=== PATIENT | male | born 1950 | race Caucasian/White ===

== ENCOUNTER 2016-04-27 21:44 | Emergency (ER) | payer OTHER, MEDICARE ==
[~2016-04-27] VITALS: Ht 177.8 cm; Wt 129.3 kg
[~2016-04-27 21:44] MED LIST: ACETAMINOPHEN325 M1 PO; ADVAIR HFA115 MCG/21 INH; AMLODIPINE BESYL5 MG PO; ASA81BEC PO; ASPIRIN325 PO; ASPIRIN81 M2 PO; ATORVASTATIN CA40 MG PO; AZOR 10-20 MG1 EACH PO; AZOR 10-40 MG1 EACH PO; BENICAR 5 MG5 M1 PO; BUMETANIDE2 M1 PO; BYSTOLIC10 MG PO; BYSTOLIC20 MG PO; CARDIZEM CD240 MG PO; CARTIA XT180 M1 PO; CEFDINIR300 MG PO; CELEBREX 200 M200 M1 PO; COLACE100 MG PO; DEMADEX20 MG PO; DIGOXIN250 MCG PO; EFFIENT10 MG PO; IRON325 PO; K-DUR 20 MEQ T20 MEQ PO; KLOR-CON 1010 MEQ PO; LIPITOR 20 MG T20 M1 PO; LISINOPRIL10 MG PO; LISINOPRIL20 MG PO; LISINOPRIL40 MG PO; MOBIC15 MG PO; NABUMETONE 500500 M1 PO; NICOTINE TRANSD14 M1 SUBQ; NITROGLYCERIN0.4 MG SL; PACERONE 200 M200 MG PO; PANTOPRAZOLE SO40 M1 PO; POTASSIUM20 PO; PROAIR HFA8.5 GM INH; RANEXA500 MG PO; SENNA; SIMVASTATIN40 MG PO; SPIRIVA INH; SPIRIVA18 MCG INH; SPIRONOLACTONE25 M1 PO; STOOL SOFTENER1 EAC2 PO; TOPROL XL50 MG PO; TRAMADOL 50 MG50 MG PO; VIBRAMYCIN 100100 M2 PO; XARELTO20 MG PO; ZOFRAN ODT4 MG PO
== END 2016-04-28 00:33 | disposition home or self-care (01) ==
LOC: ER 21:44
DX: M54.5 Low back pain (principal); E78.00 Pure hypercholesterolemia, unspecified; I25.2 Old myocardial infarction; I11.0 Hypertensive heart disease with heart failure; I50.30 Unspecified diastolic (congestive) heart failure; J44.9 Chronic obstructive pulmonary disease, unspecified; G47.30 Sleep apnea, unspecified; I48.91 Unspecified atrial fibrillation; F17.210 Nicotine dependence, cigarettes, uncomplicated; Z90.49 Acquired absence of other specified parts of digestive tract; Z95.5 Presence of coronary angioplasty implant and graft; Z87.442 Personal history of urinary calculi; Z86.73 Personal history of transient ischemic attack (TIA), and cerebral infarction without residual deficits; V43.52XA Car driver injured in collision with other type car in traffic accident, initial encounter; Y93.I9 Activity, other involving external motion; Y92.488 Other paved roadways as the place of occurrence of the external cause; Y99.8 Other external cause status

== ENCOUNTER → 2016-08-09 | Outpatient (CLI) | payer OTHER, MEDICARE | LOC: HYPER 07:04 | DX: S81.802A Unspecified open wound, left lower leg, initial encounter (principal); I73.9 Peripheral vascular disease, unspecified; E66.09 Other obesity due to excess calories; I25.10 Atherosclerotic heart disease of native coronary artery without angina pectoris; I48.91 Unspecified atrial fibrillation; J44.9 Chronic obstructive pulmonary disease, unspecified; E78.5 Hyperlipidemia, unspecified; M19.90 Unspecified osteoarthritis, unspecified site; I87.323 Chronic venous hypertension (idiopathic) with inflammation of bilateral lower extremity; F17.200 Nicotine dependence, unspecified, uncomplicated; Z72.89 Other problems related to lifestyle; V49.88XA Car occupant (driver) (passenger) injured in other specified transport accidents, initial encounter; Y93.89 Activity, other specified; Y92.89 Other specified places as the place of occurrence of the external cause; Y99.8 Other external cause status ==

== ENCOUNTER → 2016-08-16 | Outpatient (CLI) | payer OTHER, MEDICARE | LOC: HYPER 07:05 | DX: I87.332 Chronic venous hypertension (idiopathic) with ulcer and inflammation of left lower extremity (principal); L97.821 Non-pressure chronic ulcer of other part of left lower leg limited to breakdown of skin; I87.321 Chronic venous hypertension (idiopathic) with inflammation of right lower extremity; I73.9 Peripheral vascular disease, unspecified; E66.09 Other obesity due to excess calories; I48.91 Unspecified atrial fibrillation; J44.9 Chronic obstructive pulmonary disease, unspecified; E78.5 Hyperlipidemia, unspecified; M19.90 Unspecified osteoarthritis, unspecified site; F17.210 Nicotine dependence, cigarettes, uncomplicated; Z68.41 Body mass index [BMI] 40.0-44.9, adult; Z95.0 Presence of cardiac pacemaker; Z72.89 Other problems related to lifestyle ==

== ENCOUNTER → 2016-08-28 | Outpatient (CLI) | payer OTHER, MEDICARE | LOC: HYPER 07:37 | DX: I87.332 Chronic venous hypertension (idiopathic) with ulcer and inflammation of left lower extremity (principal); L97.821 Non-pressure chronic ulcer of other part of left lower leg limited to breakdown of skin; E66.09 Other obesity due to excess calories; I25.10 Atherosclerotic heart disease of native coronary artery without angina pectoris; I87.321 Chronic venous hypertension (idiopathic) with inflammation of right lower extremity; Z68.41 Body mass index [BMI] 40.0-44.9, adult; I48.91 Unspecified atrial fibrillation; J44.9 Chronic obstructive pulmonary disease, unspecified; E78.5 Hyperlipidemia, unspecified; M19.90 Unspecified osteoarthritis, unspecified site; F17.210 Nicotine dependence, cigarettes, uncomplicated; Z72.89 Other problems related to lifestyle ==

== ENCOUNTER → 2016-09-04 | Outpatient (CLI) | payer OTHER, MEDICARE | LOC: HYPER 07:09 | DX: I87.332 Chronic venous hypertension (idiopathic) with ulcer and inflammation of left lower extremity (principal); L97.821 Non-pressure chronic ulcer of other part of left lower leg limited to breakdown of skin; I73.9 Peripheral vascular disease, unspecified; E66.09 Other obesity due to excess calories; I25.10 Atherosclerotic heart disease of native coronary artery without angina pectoris; I48.91 Unspecified atrial fibrillation; J44.9 Chronic obstructive pulmonary disease, unspecified; E78.5 Hyperlipidemia, unspecified; M19.90 Unspecified osteoarthritis, unspecified site; F17.200 Nicotine dependence, unspecified, uncomplicated; Z72.89 Other problems related to lifestyle; Z68.41 Body mass index [BMI] 40.0-44.9, adult ==

== ENCOUNTER → 2016-09-11 | Outpatient (CLI) | payer OTHER, MEDICARE | LOC: HYPER 07:14 | DX: I87.332 Chronic venous hypertension (idiopathic) with ulcer and inflammation of left lower extremity (principal); L97.821 Non-pressure chronic ulcer of other part of left lower leg limited to breakdown of skin; I87.321 Chronic venous hypertension (idiopathic) with inflammation of right lower extremity; E66.09 Other obesity due to excess calories; I25.10 Atherosclerotic heart disease of native coronary artery without angina pectoris; I48.91 Unspecified atrial fibrillation; J44.9 Chronic obstructive pulmonary disease, unspecified; E78.5 Hyperlipidemia, unspecified; M19.90 Unspecified osteoarthritis, unspecified site; Z68.41 Body mass index [BMI] 40.0-44.9, adult; F17.210 Nicotine dependence, cigarettes, uncomplicated; Z72.89 Other problems related to lifestyle ==

== ENCOUNTER → 2016-09-25 | Outpatient (CLI) | payer OTHER, MEDICARE | LOC: HYPER 09-18 12:46 | DX: I87.332 Chronic venous hypertension (idiopathic) with ulcer and inflammation of left lower extremity (principal); L97.821 Non-pressure chronic ulcer of other part of left lower leg limited to breakdown of skin; I73.9 Peripheral vascular disease, unspecified; E66.09 Other obesity due to excess calories; I48.91 Unspecified atrial fibrillation; J44.9 Chronic obstructive pulmonary disease, unspecified; I20.9 Angina pectoris, unspecified; M19.90 Unspecified osteoarthritis, unspecified site; F17.200 Nicotine dependence, unspecified, uncomplicated; Z95.0 Presence of cardiac pacemaker; Z68.41 Body mass index [BMI] 40.0-44.9, adult; Z72.89 Other problems related to lifestyle ==

== ENCOUNTER → 2016-10-09 | Outpatient (CLI) | payer OTHER, MEDICARE | LOC: HYPER 07:14 | DX: I87.332 Chronic venous hypertension (idiopathic) with ulcer and inflammation of left lower extremity (principal); L97.821 Non-pressure chronic ulcer of other part of left lower leg limited to breakdown of skin; I87.321 Chronic venous hypertension (idiopathic) with inflammation of right lower extremity; S80.861A Insect bite (nonvenomous), right lower leg, initial encounter; I48.91 Unspecified atrial fibrillation; J44.9 Chronic obstructive pulmonary disease, unspecified; E78.5 Hyperlipidemia, unspecified; M19.90 Unspecified osteoarthritis, unspecified site; F17.200 Nicotine dependence, unspecified, uncomplicated; Z72.89 Other problems related to lifestyle; Z95.0 Presence of cardiac pacemaker; W57.XXXA Bitten or stung by nonvenomous insect and other nonvenomous arthropods, initial encounter; Y93.89 Activity, other specified; Y92.89 Other specified places as the place of occurrence of the external cause; Y99.8 Other external cause status ==

== ENCOUNTER → 2016-10-16 | Outpatient (CLI) | payer OTHER, MEDICARE | LOC: HYPER 06:57 | DX: I87.332 Chronic venous hypertension (idiopathic) with ulcer and inflammation of left lower extremity (principal); L97.821 Non-pressure chronic ulcer of other part of left lower leg limited to breakdown of skin; I87.321 Chronic venous hypertension (idiopathic) with inflammation of right lower extremity; E66.09 Other obesity due to excess calories; I25.10 Atherosclerotic heart disease of native coronary artery without angina pectoris; I48.91 Unspecified atrial fibrillation; J44.9 Chronic obstructive pulmonary disease, unspecified; E78.5 Hyperlipidemia, unspecified; M19.90 Unspecified osteoarthritis, unspecified site; F17.200 Nicotine dependence, unspecified, uncomplicated; Z95.0 Presence of cardiac pacemaker; Z72.89 Other problems related to lifestyle ==

== ENCOUNTER → 2016-10-23 | Outpatient (CLI) | payer OTHER, MEDICARE | LOC: HYPER 07:08 | DX: I87.332 Chronic venous hypertension (idiopathic) with ulcer and inflammation of left lower extremity (principal); L97.821 Non-pressure chronic ulcer of other part of left lower leg limited to breakdown of skin; S80.861D Insect bite (nonvenomous), right lower leg, subsequent encounter; I87.321 Chronic venous hypertension (idiopathic) with inflammation of right lower extremity; L03.116 Cellulitis of left lower limb; I73.9 Peripheral vascular disease, unspecified; I48.91 Unspecified atrial fibrillation; I20.9 Angina pectoris, unspecified; E66.09 Other obesity due to excess calories; J44.9 Chronic obstructive pulmonary disease, unspecified; E78.5 Hyperlipidemia, unspecified; M19.90 Unspecified osteoarthritis, unspecified site; F17.200 Nicotine dependence, unspecified, uncomplicated; Z95.0 Presence of cardiac pacemaker; Z72.89 Other problems related to lifestyle; Z68.41 Body mass index [BMI] 40.0-44.9, adult; W57.XXXD Bitten or stung by nonvenomous insect and other nonvenomous arthropods, subsequent encounter ==

== ENCOUNTER → 2016-10-30 | Outpatient (CLI) | payer OTHER, MEDICARE | LOC: HYPER 06:59 | DX: I87.333 Chronic venous hypertension (idiopathic) with ulcer and inflammation of bilateral lower extremity (principal); L97.811 Non-pressure chronic ulcer of other part of right lower leg limited to breakdown of skin; L97.821 Non-pressure chronic ulcer of other part of left lower leg limited to breakdown of skin; I73.9 Peripheral vascular disease, unspecified; E66.09 Other obesity due to excess calories; I48.91 Unspecified atrial fibrillation; J44.9 Chronic obstructive pulmonary disease, unspecified; I20.9 Angina pectoris, unspecified; E78.5 Hyperlipidemia, unspecified; M19.90 Unspecified osteoarthritis, unspecified site; F17.200 Nicotine dependence, unspecified, uncomplicated; Z95.0 Presence of cardiac pacemaker; Z68.41 Body mass index [BMI] 40.0-44.9, adult; Z72.89 Other problems related to lifestyle ==

== ENCOUNTER → 2016-11-06 | Outpatient (CLI) | payer OTHER, MEDICARE | LOC: HYPER 06:58 | DX: I87.333 Chronic venous hypertension (idiopathic) with ulcer and inflammation of bilateral lower extremity (principal); L97.811 Non-pressure chronic ulcer of other part of right lower leg limited to breakdown of skin; L97.822 Non-pressure chronic ulcer of other part of left lower leg with fat layer exposed; I73.9 Peripheral vascular disease, unspecified; E66.09 Other obesity due to excess calories; I48.91 Unspecified atrial fibrillation; J44.9 Chronic obstructive pulmonary disease, unspecified; I20.9 Angina pectoris, unspecified; E78.5 Hyperlipidemia, unspecified; M19.90 Unspecified osteoarthritis, unspecified site; H40.9 Unspecified glaucoma; F17.200 Nicotine dependence, unspecified, uncomplicated; Z95.0 Presence of cardiac pacemaker; Z68.41 Body mass index [BMI] 40.0-44.9, adult; Z72.89 Other problems related to lifestyle ==

== ENCOUNTER → 2016-11-13 | Outpatient (CLI) | payer OTHER, MEDICARE | LOC: HYPER 07:04 | DX: I87.333 Chronic venous hypertension (idiopathic) with ulcer and inflammation of bilateral lower extremity (principal); L97.811 Non-pressure chronic ulcer of other part of right lower leg limited to breakdown of skin; L97.821 Non-pressure chronic ulcer of other part of left lower leg limited to breakdown of skin; I73.9 Peripheral vascular disease, unspecified; E66.09 Other obesity due to excess calories; I25.10 Atherosclerotic heart disease of native coronary artery without angina pectoris; B95.62 Methicillin resistant Staphylococcus aureus infection as the cause of diseases classified elsewhere; I48.91 Unspecified atrial fibrillation; J44.9 Chronic obstructive pulmonary disease, unspecified; E78.5 Hyperlipidemia, unspecified; M19.90 Unspecified osteoarthritis, unspecified site; F17.200 Nicotine dependence, unspecified, uncomplicated; Z72.89 Other problems related to lifestyle; Z95.0 Presence of cardiac pacemaker ==

== ENCOUNTER → 2016-11-20 | Outpatient (CLI) | payer OTHER, MEDICARE | LOC: HYPER 07:00 | DX: I87.333 Chronic venous hypertension (idiopathic) with ulcer and inflammation of bilateral lower extremity (principal); L97.821 Non-pressure chronic ulcer of other part of left lower leg limited to breakdown of skin; L97.811 Non-pressure chronic ulcer of other part of right lower leg limited to breakdown of skin; I73.9 Peripheral vascular disease, unspecified; E66.09 Other obesity due to excess calories; I89.0 Lymphedema, not elsewhere classified; I48.91 Unspecified atrial fibrillation; J44.9 Chronic obstructive pulmonary disease, unspecified; I20.9 Angina pectoris, unspecified; E78.5 Hyperlipidemia, unspecified; M19.90 Unspecified osteoarthritis, unspecified site; H40.9 Unspecified glaucoma; F17.200 Nicotine dependence, unspecified, uncomplicated; Z72.89 Other problems related to lifestyle; Z86.14 Personal history of Methicillin resistant Staphylococcus aureus infection; Z68.41 Body mass index [BMI] 40.0-44.9, adult; Z95.0 Presence of cardiac pacemaker ==

== ENCOUNTER 2016-11-23 10:56 | Emergency (ER) | payer OTHER, MEDICARE | END 2016-11-23 13:25 | disposition home or self-care (01) | LOC: ER 10:56 | DX: Z48.00 Encounter for change or removal of nonsurgical wound dressing (principal); L03.115 Cellulitis of right lower limb; E78.00 Pure hypercholesterolemia, unspecified; I25.2 Old myocardial infarction; I11.0 Hypertensive heart disease with heart failure; I50.9 Heart failure, unspecified; J44.9 Chronic obstructive pulmonary disease, unspecified; G47.30 Sleep apnea, unspecified; I48.91 Unspecified atrial fibrillation; F17.210 Nicotine dependence, cigarettes, uncomplicated; Z90.49 Acquired absence of other specified parts of digestive tract; Z95.5 Presence of coronary angioplasty implant and graft; Z87.442 Personal history of urinary calculi; Z86.73 Personal history of transient ischemic attack (TIA), and cerebral infarction without residual deficits ==

== ENCOUNTER → 2016-11-27 | Outpatient (CLI) | payer OTHER, MEDICARE | LOC: HYPER 07:11 | DX: I87.333 Chronic venous hypertension (idiopathic) with ulcer and inflammation of bilateral lower extremity (principal); L97.821 Non-pressure chronic ulcer of other part of left lower leg limited to breakdown of skin; L97.811 Non-pressure chronic ulcer of other part of right lower leg limited to breakdown of skin; I73.9 Peripheral vascular disease, unspecified; E66.09 Other obesity due to excess calories; Z68.41 Body mass index [BMI] 40.0-44.9, adult; I25.10 Atherosclerotic heart disease of native coronary artery without angina pectoris; B95.62 Methicillin resistant Staphylococcus aureus infection as the cause of diseases classified elsewhere; I89.0 Lymphedema, not elsewhere classified; I48.91 Unspecified atrial fibrillation; J44.9 Chronic obstructive pulmonary disease, unspecified; E78.5 Hyperlipidemia, unspecified; M19.90 Unspecified osteoarthritis, unspecified site; Z95.0 Presence of cardiac pacemaker; F17.200 Nicotine dependence, unspecified, uncomplicated; Z72.89 Other problems related to lifestyle ==

== ENCOUNTER → 2016-12-05 | Outpatient (CLI) | payer OTHER, MEDICARE | LOC: HYPER 06:46 | DX: I87.332 Chronic venous hypertension (idiopathic) with ulcer and inflammation of left lower extremity (principal); L97.821 Non-pressure chronic ulcer of other part of left lower leg limited to breakdown of skin; I87.321 Chronic venous hypertension (idiopathic) with inflammation of right lower extremity; E66.09 Other obesity due to excess calories; I25.10 Atherosclerotic heart disease of native coronary artery without angina pectoris; I89.0 Lymphedema, not elsewhere classified; B95.62 Methicillin resistant Staphylococcus aureus infection as the cause of diseases classified elsewhere; Z68.41 Body mass index [BMI] 40.0-44.9, adult; I48.91 Unspecified atrial fibrillation; J44.9 Chronic obstructive pulmonary disease, unspecified; E78.5 Hyperlipidemia, unspecified; M19.90 Unspecified osteoarthritis, unspecified site; F17.200 Nicotine dependence, unspecified, uncomplicated; Z72.89 Other problems related to lifestyle; Z95.0 Presence of cardiac pacemaker ==

== ENCOUNTER → 2016-12-11 | Outpatient (CLI) | payer OTHER, MEDICARE | LOC: HYPER 06:51 | DX: I87.333 Chronic venous hypertension (idiopathic) with ulcer and inflammation of bilateral lower extremity (principal); L97.821 Non-pressure chronic ulcer of other part of left lower leg limited to breakdown of skin; L97.811 Non-pressure chronic ulcer of other part of right lower leg limited to breakdown of skin; S81.802D Unspecified open wound, left lower leg, subsequent encounter; I73.9 Peripheral vascular disease, unspecified; I89.0 Lymphedema, not elsewhere classified; I48.91 Unspecified atrial fibrillation; I20.9 Angina pectoris, unspecified; E78.5 Hyperlipidemia, unspecified; E66.09 Other obesity due to excess calories; H40.9 Unspecified glaucoma; J44.9 Chronic obstructive pulmonary disease, unspecified; M19.90 Unspecified osteoarthritis, unspecified site; F17.200 Nicotine dependence, unspecified, uncomplicated; Z86.14 Personal history of Methicillin resistant Staphylococcus aureus infection; Z95.0 Presence of cardiac pacemaker; Z72.89 Other problems related to lifestyle; Z68.41 Body mass index [BMI] 40.0-44.9, adult; V89.2XXD Person injured in unspecified motor-vehicle accident, traffic, subsequent encounter ==

== ENCOUNTER → 2016-12-18 | Outpatient (CLI) | payer OTHER, MEDICARE | LOC: HYPER 06:58 | DX: I87.333 Chronic venous hypertension (idiopathic) with ulcer and inflammation of bilateral lower extremity (principal); L97.821 Non-pressure chronic ulcer of other part of left lower leg limited to breakdown of skin; L97.811 Non-pressure chronic ulcer of other part of right lower leg limited to breakdown of skin; S81.802D Unspecified open wound, left lower leg, subsequent encounter; I73.9 Peripheral vascular disease, unspecified; E66.09 Other obesity due to excess calories; I89.0 Lymphedema, not elsewhere classified; I48.91 Unspecified atrial fibrillation; J44.9 Chronic obstructive pulmonary disease, unspecified; I20.9 Angina pectoris, unspecified; E78.5 Hyperlipidemia, unspecified; M19.90 Unspecified osteoarthritis, unspecified site; H40.9 Unspecified glaucoma; F17.200 Nicotine dependence, unspecified, uncomplicated; Z72.89 Other problems related to lifestyle; Z86.14 Personal history of Methicillin resistant Staphylococcus aureus infection; Z95.0 Presence of cardiac pacemaker; V89.2XXD Person injured in unspecified motor-vehicle accident, traffic, subsequent encounter ==

== ENCOUNTER → 2016-12-26 | Outpatient (CLI) | payer OTHER, MEDICARE | LOC: HYPER 07:07 | DX: I87.333 Chronic venous hypertension (idiopathic) with ulcer and inflammation of bilateral lower extremity (principal); L97.821 Non-pressure chronic ulcer of other part of left lower leg limited to breakdown of skin; L97.811 Non-pressure chronic ulcer of other part of right lower leg limited to breakdown of skin; E66.09 Other obesity due to excess calories; I89.0 Lymphedema, not elsewhere classified; I10 Essential (primary) hypertension; I48.91 Unspecified atrial fibrillation; J44.9 Chronic obstructive pulmonary disease, unspecified; I20.9 Angina pectoris, unspecified; E78.5 Hyperlipidemia, unspecified; M19.90 Unspecified osteoarthritis, unspecified site; H40.9 Unspecified glaucoma; F17.200 Nicotine dependence, unspecified, uncomplicated; Z95.0 Presence of cardiac pacemaker; Z86.14 Personal history of Methicillin resistant Staphylococcus aureus infection; Z72.89 Other problems related to lifestyle; Z68.41 Body mass index [BMI] 40.0-44.9, adult ==

== ENCOUNTER → 2017-01-11 | Outpatient (CLI) | payer OTHER, MEDICARE | LOC: HYPER 08:02 | DX: I87.331 Chronic venous hypertension (idiopathic) with ulcer and inflammation of right lower extremity (principal); L97.811 Non-pressure chronic ulcer of other part of right lower leg limited to breakdown of skin; I73.9 Peripheral vascular disease, unspecified; E66.09 Other obesity due to excess calories; I89.0 Lymphedema, not elsewhere classified; J44.9 Chronic obstructive pulmonary disease, unspecified; I11.0 Hypertensive heart disease with heart failure; I50.32 Chronic diastolic (congestive) heart failure; I48.91 Unspecified atrial fibrillation; I20.9 Angina pectoris, unspecified; E78.5 Hyperlipidemia, unspecified; M19.90 Unspecified osteoarthritis, unspecified site; H26.9 Unspecified cataract; F17.200 Nicotine dependence, unspecified, uncomplicated; Z72.89 Other problems related to lifestyle; Z95.0 Presence of cardiac pacemaker; Z68.41 Body mass index [BMI] 40.0-44.9, adult ==

== ENCOUNTER → 2017-01-28 | Outpatient (CLI) | payer OTHER, MEDICARE | LOC: HYPER 01-25 16:29 | DX: I87.331 Chronic venous hypertension (idiopathic) with ulcer and inflammation of right lower extremity (principal); L97.811 Non-pressure chronic ulcer of other part of right lower leg limited to breakdown of skin; I73.9 Peripheral vascular disease, unspecified; E66.09 Other obesity due to excess calories; I25.10 Atherosclerotic heart disease of native coronary artery without angina pectoris; I89.0 Lymphedema, not elsewhere classified; I48.91 Unspecified atrial fibrillation; J44.9 Chronic obstructive pulmonary disease, unspecified; E78.5 Hyperlipidemia, unspecified; M19.90 Unspecified osteoarthritis, unspecified site; F17.200 Nicotine dependence, unspecified, uncomplicated; Z72.89 Other problems related to lifestyle ==

== ENCOUNTER → 2017-11-18 | Outpatient (CLI) | payer OTHER, MEDICARE | LOC: HYPER 07:09 | DX: I87.331 Chronic venous hypertension (idiopathic) with ulcer and inflammation of right lower extremity (principal); L97.811 Non-pressure chronic ulcer of other part of right lower leg limited to breakdown of skin; S81.812D Laceration without foreign body, left lower leg, subsequent encounter; I89.0 Lymphedema, not elsewhere classified; I73.9 Peripheral vascular disease, unspecified; I25.119 Atherosclerotic heart disease of native coronary artery with unspecified angina pectoris; I48.91 Unspecified atrial fibrillation; E66.09 Other obesity due to excess calories; E78.5 Hyperlipidemia, unspecified; M19.90 Unspecified osteoarthritis, unspecified site; J44.9 Chronic obstructive pulmonary disease, unspecified; F17.290 Nicotine dependence, other tobacco product, uncomplicated; Z21 Asymptomatic human immunodeficiency virus [HIV] infection status; Z95.0 Presence of cardiac pacemaker; Z89.422 Acquired absence of other left toe(s); Z68.39 Body mass index [BMI] 39.0-39.9, adult; W19.XXXD Unspecified fall, subsequent encounter ==

== ENCOUNTER → 2018-04-03 | Outpatient (CLI) | payer OTHER, MEDICARE ==
[2018-04-03 13:33] LABS: CREATININE 1.1 mg/dL (0.7-1.3)
== END ==
LOC: CAT 12:48
PROVIDERS: Family Medicine
DX: N28.1 Cyst of kidney, acquired (principal); K57.30 Diverticulosis of large intestine without perforation or abscess without bleeding; J90 Pleural effusion, not elsewhere classified; J98.11 Atelectasis; I70.0 Atherosclerosis of aorta; I25.10 Atherosclerotic heart disease of native coronary artery without angina pectoris; Z90.49 Acquired absence of other specified parts of digestive tract; Z95.5 Presence of coronary angioplasty implant and graft

== ENCOUNTER → 2018-04-07 | Outpatient (CLI) | payer OTHER, MEDICARE | LOC: ULTRA 08:53 | DX: J90 Pleural effusion, not elsewhere classified (principal); R10.9 Unspecified abdominal pain; Z90.49 Acquired absence of other specified parts of digestive tract ==

== ENCOUNTER → 2018-07-03 | Outpatient (CLI) | payer OTHER, MEDICARE | LOC: RAD 09:05 | DX: J90 Pleural effusion, not elsewhere classified (principal); J98.11 Atelectasis ==

== ENCOUNTER → 2018-09-04 | Outpatient (CLI) | payer OTHER, MEDICARE | LOC: CAT 11:29 | DX: M77.51 Other enthesopathy of right foot and ankle (principal); R60.0 Localized edema ==

== ENCOUNTER → 2018-09-10 | Outpatient (CLI) | payer OTHER, MEDICARE | LOC: HYPER 06:38 | DX: L97.821 Non-pressure chronic ulcer of other part of left lower leg limited to breakdown of skin (principal); S50.311A Abrasion of right elbow, initial encounter; I89.0 Lymphedema, not elsewhere classified; I73.9 Peripheral vascular disease, unspecified; I87.2 Venous insufficiency (chronic) (peripheral); I10 Essential (primary) hypertension; I25.10 Atherosclerotic heart disease of native coronary artery without angina pectoris; I48.91 Unspecified atrial fibrillation; E78.5 Hyperlipidemia, unspecified; M19.90 Unspecified osteoarthritis, unspecified site; R60.0 Localized edema; B20 Human immunodeficiency virus [HIV] disease; J44.9 Chronic obstructive pulmonary disease, unspecified; F17.290 Nicotine dependence, other tobacco product, uncomplicated; Z89.422 Acquired absence of other left toe(s); X58.XXXA Exposure to other specified factors, initial encounter; Y93.89 Activity, other specified; Y92.89 Other specified places as the place of occurrence of the external cause; Y99.8 Other external cause status ==

== ENCOUNTER 2018-09-21 10:34 | Emergency (ER) | payer OTHER, MEDICARE ==
[~2018-09-21] VITALS: Ht 177.8 cm; Wt 123.4 kg
[2018-09-21] MEDS ORDERED: PLAVIX 75 MG TA75 MG PO (11:03)
[2018-09-21] MEDS ORDERED: COZAAR 25 MG TA25 M1 PO (11:04)
[2018-09-21] MEDS ORDERED: FLOMAX0.4 MG PO (11:04)
[2018-09-21] MEDS ORDERED: INSPRA25 MG PO (11:05)
[2018-09-21] MEDS ORDERED: PROAIR HFA8.5 GM PO (11:06)
[2018-09-21] MEDS ORDERED: SPIRIVA INH (11:06)
[2018-09-21 12:09] LABS: HEMOGLOBIN 16.3 gm/dL (14.0-18.0); POLYS 81.7 % (36.0-66.0); WBC 4.3 thou/uL (4.0-11.0)
[2018-09-21 12:12] LABS: ABSOLUTE NEUTROPHILS 3.6 thou/uL (1.4-8.2); BASOPHILS 0.8 % (0.0-2.0); EOSINOPHILS 2.8 % (0.0-3.0); HEMATOCRIT 49.3 % (42.0-52.0); MCH 28.9 pg (26.0-34.0); MCHC 33.1 g/dL (28.0-37.0); MCV 87.2 fL (80.0-100.0); MONOCYTES 8.7 % (1.0-8.0); PLATELET COUNT 116 thou/uL (150-400); RBC 5.66 mil/uL (4.50-6.00)
[2018-09-21 12:16] LABS: ANION GAP 6 mmol/L (7-16); BUN 15 mg/dL (7-18); CALCIUM 8.3 mg/dL (8.5-10.1); CHLORIDE 107 mmol/L (98-107); CO2 29 mmol/L (21-32); GLUCOSE 101 mg/dL (74-106); POTASSIUM 4.2 mmol/L (3.5-5.1); SODIUM 142 mmol/L (136-145)
[2018-09-21 12:23] LABS: TROPONIN-I <0.06 ng/mL (<0.06)
[2018-09-21 13:50] VITALS: BP 134/82
--- NOTE | 2018-09-22 09:16 | EKG ---
[place] [address] 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 : 1950 Requested By: Luis Chi Order Number: [id number] MD: Tanvir Merchant Measurements Intervals [place] Rate: 67 P: [place]: QRS: 2 QRSD: 101 T: 187 QT: 353 QTc: 373 Interpretive Statements Atrial fibrillation Probable inferior infarct, age indeterminate Nonspecific ST and T wave abnormality Compared to ECG 11/16/2015 14:47:01 PVC's are now present Atrial fibrillation has replaced atrial flutter Electronically Signed On 09-22-2018 9:16:28 CDT by Tanvir Merchant [email or web address] ��������������������������������������������� <ELECTRONICALLY SIGNED> ���������������������������������������� By: Tanvir Merchant MD, [facility] ��������������������������������������������� 09/22/18 0916 1119 1119 Tanvir Merchant MD, [facility] /EPI
== END 2018-09-21 13:30 | disposition home or self-care (01) ==
LOC: ER 10:34
PROVIDERS: Emergency Medicine
DX: R06.02 Shortness of breath (principal); F17.210 Nicotine dependence, cigarettes, uncomplicated; E78.00 Pure hypercholesterolemia, unspecified; I11.0 Hypertensive heart disease with heart failure; I50.9 Heart failure, unspecified; J44.9 Chronic obstructive pulmonary disease, unspecified; G47.30 Sleep apnea, unspecified; I48.91 Unspecified atrial fibrillation; I25.10 Atherosclerotic heart disease of native coronary artery without angina pectoris; Z87.442 Personal history of urinary calculi; Z90.49 Acquired absence of other specified parts of digestive tract; Z95.5 Presence of coronary angioplasty implant and graft; Z86.73 Personal history of transient ischemic attack (TIA), and cerebral infarction without residual deficits

== ENCOUNTER → 2018-11-03 | Outpatient (CLI) | payer OTHER, MEDICARE ==
[~2018-11-03] MED LIST changes: +COZAAR 25 MG TA25 M1 PO; +FLOMAX0.4 MG PO; +INSPRA25 MG PO; +PLAVIX 75 MG TA75 MG PO; +PROAIR HFA8.5 GM PO
== END ==
LOC: HYPER 06:53
DX: L97.821 Non-pressure chronic ulcer of other part of left lower leg limited to breakdown of skin (principal); L97.811 Non-pressure chronic ulcer of other part of right lower leg limited to breakdown of skin; S50.311D Abrasion of right elbow, subsequent encounter; I89.0 Lymphedema, not elsewhere classified; I87.2 Venous insufficiency (chronic) (peripheral); I25.119 Atherosclerotic heart disease of native coronary artery with unspecified angina pectoris; I73.9 Peripheral vascular disease, unspecified; I10 Essential (primary) hypertension; I48.91 Unspecified atrial fibrillation; E78.5 Hyperlipidemia, unspecified; R60.0 Localized edema; J44.9 Chronic obstructive pulmonary disease, unspecified; M19.90 Unspecified osteoarthritis, unspecified site; H40.9 Unspecified glaucoma; F17.290 Nicotine dependence, other tobacco product, uncomplicated; Z21 Asymptomatic human immunodeficiency virus [HIV] infection status; Z89.422 Acquired absence of other left toe(s); W19.XXXD Unspecified fall, subsequent encounter

== ENCOUNTER → 2018-11-17 | Outpatient (CLI) | payer OTHER, MEDICARE | LOC: HYPER 07:09 | DX: L97.821 Non-pressure chronic ulcer of other part of left lower leg limited to breakdown of skin (principal); L97.811 Non-pressure chronic ulcer of other part of right lower leg limited to breakdown of skin; S50.3 Other superficial injuries of elbow; I87.2 Venous insufficiency (chronic) (peripheral); I89.0 Lymphedema, not elsewhere classified; I10 Essential (primary) hypertension; I73.9 Peripheral vascular disease, unspecified; I48.91 Unspecified atrial fibrillation; E78.5 Hyperlipidemia, unspecified; I25.10 Atherosclerotic heart disease of native coronary artery without angina pectoris; M19.90 Unspecified osteoarthritis, unspecified site; B20 Human immunodeficiency virus [HIV] disease; R60.0 Localized edema; J44.9 Chronic obstructive pulmonary disease, unspecified; F17.290 Nicotine dependence, other tobacco product, uncomplicated; Z89.422 Acquired absence of other left toe(s); X58.XXXD Exposure to other specified factors, subsequent encounter ==

== ENCOUNTER → 2019-03-17 | Outpatient (CLI) | payer OTHER, MEDICARE ==
[~2019-03-17] MED LIST changes: +ELIQUIS5 MG PO
== END ==
LOC: LABMALL 08:46 → MRI 11:52
DX: R90.82 White matter disease, unspecified (principal); G45.9 Transient cerebral ischemic attack, unspecified; I63.9 Cerebral infarction, unspecified; G93.89 Other specified disorders of brain; G93.6 Cerebral edema

== ENCOUNTER 2019-03-31 10:13 | Inpatient (IN) | payer OTHER, MEDICARE ==
[~2019-03-31] VITALS: Ht 180.3 cm; Wt 119.3 kg
[2019-03-31 10:22] VITALS: BP 110/34
[2019-03-31 11:11] LABS: BASOPHILS 0.3 % (0.0-2.0); EOSINOPHILS 2.9 % (0.0-3.0); HEMATOCRIT 48.4 % (42.0-52.0); HEMOGLOBIN 15.9 gm/dL (14.0-18.0); LYMPHOCYTES 5.1 % (24.0-44.0); MCH 30.4 pg (26.0-34.0); MCHC 32.9 g/dL (28.0-37.0); MCV 92.4 fL (80.0-100.0); MONOCYTES 10.8 % (1.0-8.0); PLATELET COUNT 129 thou/uL (150-400); POLYS 80.9 % (36.0-66.0); RBC 5.24 mil/uL (4.50-6.00); RDW 15.5 % (10.5-14.5); WBC 4.9 thou/uL (4.0-11.0)
[2019-03-31 11:20] LABS: ANION GAP 7 mmol/L (7-16); BUN 23 mg/dL (7-18); CALCIUM 8.8 mg/dL (8.5-10.1); CHLORIDE 106 mmol/L (98-107); CO2 28 mmol/L (21-32); CREATININE 1.1 mg/dL (0.7-1.3); GLUCOSE 119 mg/dL (74-106); POTASSIUM 4.2 mmol/L (3.5-5.1); SODIUM 141 mmol/L (136-145)
[2019-03-31 11:29] LABS: ALBUMIN 2.4 g/dL (3.4-5.0); SGOT 37 U/L (15-37); SGPT 39 U/L (30-65); TOTAL BILIRUBIN 0.5 mg/dL (<0.1-1.0); TOTAL PROTEIN 5.5 g/dL (6.4-8.2); TROPONIN-I <0.06 ng/mL (<0.06)
[2019-03-31 13:31] VITALS: BP 110/34
[2019-03-31 14:54] VITALS: BP 141/82
--- NOTE | 2019-03-31 17:44 | NUR ---
PATIENT ADMIT TO UNIT AT 1500 FROM ER. A/O X4. DENIES PAIN BLE 3+ EDEMA WITH DISCOLORATION. UP AD CHATA. WILL KEEP MONITOR.
[2019-03-31 19:17] VITALS: BP 111/50
[2019-04-01] VITALS: BP 109/55
--- NOTE | 2019-04-01 03:28 | NUR ---
Patient making slow progress towards outcome goals. Oxygenation optimal on roomiar. Tolerating home CPAP. Vital signs and rhythm stable. Chronic afib rate 40's.
[2019-04-01 05:10] VITALS: BP 116/73
[2019-04-01 06:08] LABS: CALCIUM 8.4 mg/dL (8.5-10.1); CREATININE 1.2 mg/dL (0.7-1.3); POTASSIUM 4.1 mmol/L (3.5-5.1)
[2019-04-01 07:14] VITALS: BP 113/61
--- NOTE | 2019-04-01 10:49 | EKG ---
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 : 1950 Requested By: Rachid Bowman Order Number: [id number] MD: Jeremie Benson Measurements Intervals [place] Rate: 64 P: [place]: QRS: 16 QRSD: 77 T: -81 QT: 565 QTc: 583 Interpretive Statements Atrial fibrillation Low voltage, precordial leads Borderline T abnormalities, diffuse leads Prolonged QT interval Compared to ECG 09/21/2018 11:19:11 Low QRS voltage now present T-wave abnormality now present Prolonged QT interval now present Myocardial infarct finding no longer present ST (T wave) deviation no longer present Electronically Signed On 04-01-2019 10:48:35 WAREHOUSE DIRECTOR by Jeremie Benson [email or web address] <ELECTRONICALLY SIGNED> By: Jeremie Benson MD 04/01/19 1048 1135 1135 Jeremie Benson MD /EPI
--- NOTE | 2019-04-01 13:39 | NUR ---
PT PROGRESSING TOWARDS CARE.DENIES ANY NEEDS. cALL LIGHT IN REACH
[2019-04-01 15:11] VITALS: BP 107/60
[2019-04-01 19:45] VITALS: BP 109/62
--- NOTE | 2019-04-02 03:36 | NUR ---
ASSUMED PT CARE AROUND 1900. A&OX4. DENIES ANY PAIN. UP AD CHATA AROUND THE ROOM WITH STEADY GAIT. VOIDS PER URINAL. STRICT I/O. PT HAS BEEN SLEEPING MOST OF THE NIGHT. HE WEARS HIS HOME CPAP AT . A BEDSIDE ALL NIGHT. PROGRESSING SLOWLY TOWARD POC GOALS. WILL CONTINUE TO MONITOR FURTHER.
[2019-04-02 04:15] VITALS: BP 132/51
[2019-04-02 08:26] VITALS: BP 127/75
[2019-04-02 10:54] LABS: CALCIUM 8.6 mg/dL (8.5-10.1); CREATININE 1.3 mg/dL (0.7-1.3); POTASSIUM 3.9 mmol/L (3.5-5.1)
--- NOTE | 2019-04-02 15:12 | NUR ---
INITIAL ASSESSMENT: SW reviewed chart and spoke with nursing. Pt was admitted from home due to exacerbation of CHF and COPD. Cardiology consulted. Pt currently on IV lasix. SW met with pt at bedside. Introduced role of SW. Pt is alert/orientated x 4. Pt reports he lives at home with his . Prior to admission, pt was independent with ADLs. No DME use for ambulation. Pt has a home cpap machine through [facility]. Plan is for pt to discharge home when medically stable. No discharge needs anticipated at this time. DOUG is following to assist as needed with discharge planning.
[2019-04-02 16:02] VITALS: BP 111/61
--- NOTE | 2019-04-02 19:29 | NUR ---
PT ARRIVED ON UNIT IN [facility]. PT VSS, DENIES PAIN AT THIS TIME. PT AOX4, AT BEDSIDE. LEFT FOREARM IV SL AT THIS TIME. CALL LIGHT IN REACH/PERSONAL ITEMS. WILL CONTINUE TO MONITOR.
[2019-04-03 01:36] VITALS: BP 125/77
--- NOTE | 2019-04-03 05:01 | NUR ---
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 PLEASANT AND COOPERATIVE WITH ASSESSMENT AND ALL CARES AND MEDS. SOCIAL WITH STAFF. PO INTAKE LIMITED PER ORDERS. LEGS REMAIN QUITE EDEMATOUS. NO C/O. NO APPARENT DISTRESS THIS NIGHT. WILL CONTINUE TO MONITOR
[2019-04-03 07:05] VITALS: BP 126/57
[2019-04-03 08:07] LABS: CALCIUM 8.6 mg/dL (8.5-10.1); CREATININE 1.3 mg/dL (0.7-1.3); POTASSIUM 3.9 mmol/L (3.5-5.1)
--- NOTE | 2019-04-03 10:20 | NUR ---
SW reviewed chart and spoke with nursing. Pt was transferred to [facility] from [facility] and is slowly progressing towards. Pt remains on IV lasix. Plan is for pt to discharge home when medically stable. DOUG is following to assist as needed with discharge planning.
[2019-04-03] MEDS ORDERED: DILTIAZEM 24HR180 M1 PO (10:33)
[2019-04-03] MEDS ORDERED: TORSEMIDE20 MG PO (10:33)
[2019-04-03] MEDS ORDERED: K-DUR 20 MEQ T20 MEQ PO (10:33)
--- NOTE | 2019-04-03 15:14 | NUR ---
Assumed pt care at 7am.Pt in bed resting with with at bs assisting with care.Assessment completed.vss.Dr Rich here,order noted.Pt in bed for meals Tolerated meds. C/o back pain. Tramadol given with relief.Family here to visit later this shift.Swallow study done by speech therapist.Recommmendation pending.Will continue to monitor.
[2019-04-03 16:07] VITALS: BP 126/57
[2019-04-03 19:58] VITALS: BP 113/53
--- NOTE | 2019-04-04 05:29 | NUR ---
PATIENT ALERT AND ORIENTED X4. UP TO BATHROOM WITH ASSIST OF NEITHER SHE NOR HE USES THE CALL LIGHT FOR ASSIST TO THE BATHROOM THEY HAVE BEEN INSTRUCTED. PATIENT USES CPAP (HIS FROM HOME) OFF AND ON DURING THE NIGHT. UP DURING THE NIGHT AND CHANGED INTO PANTS AND A SWEAT SHIRT. MOVED FROM BED TO CHAIR AND BACK DURING THE NIGHT. REQUESTED APPLE JUICE AND GIVEN. DENIES PAIN. DRESSINGS TO BILATERAL LOWER LEGS DRY AND INTACT. ANTICIPATING DISCHARGE TO HOME WITH HOME HEALTH TODAY. RESTING QUIETLY, WILL MONITOR.
[2019-04-04 07:25] VITALS: BP 127/58
[2019-04-04 08:20] VITALS: BP 127/58
--- NOTE | 2019-04-04 09:53 | NUR ---
ASSUMED CARE OF PT AT 0700. PT AOX4, VSS, NO C/O PAIN AT THIS TIME. AT BEDSIDE. PT UP AD CHATA WITH ASSIST OF , DRESSINGS ON BLE DRY & INTACT. PT CALLS APPROP. PT DISCHARGING HOME TODAY, WILL TRANSPORT VIA CAR. BELONGINGS ARE PACKED TO GO HOME. IV DC'D FROM ARM.
--- NOTE | 2019-04-06 12:39 | HC ---
[facility] [place] [address] CONSULTATION Name: IQRAGUILLERMO Room #: 403-P [facility] [place] .R.#: [id number] Admission: 03/31/19 Attend Phys: Atilio Rich MD Discharge: 04/04/19 Date of : 54 Report #: [id number] THIS REPORT FOR: //name// CC: Atilio Rich DATE OF SERVICE: 04/02/2019 CHIEF COMPLAINT: Bilateral lower extremity edema. HISTORY OF PRESENT ILLNESS: This is a 68-year-old male patient who is known to our service with a history of congestive heart failure, who presented to the Emergency Room with a low oxygen saturation. He has had increasing shortness of breath, increasing swelling in his legs and abdomen and has been admitted for further evaluation and treatment. I have been asked to see him with regard to ongoing wound care as he has had venous type ulcerations of his lower extremities in the past. PAST MEDICAL HISTORY: Positive for hypertension, high cholesterol, coronary artery disease, CHF, COPD, sleep apnea, kidney stones, atrial fibrillation, TIA and CVA. FAMILY HISTORY: Positive for coronary artery disease in his father. SOCIAL HISTORY: Negative for alcohol or tobacco use. MEDICATIONS: Include tramadol, Toprol-XL, enteric coated aspirin, sennosides, Ranexa, Lipitor, Klor-Con, Demadex, Lanoxin, Cardizem, Eliquis, Flomax, Cozaar, Inspra, ProAir, Spiriva. ALLERGIES: No known drug allergies. REVIEW OF SYSTEMS: CONSTITUTIONAL: The patient denies fever, chills or weight loss. NEUROLOGICAL: The patient denies focal weakness, numbness or tingling. EYES: The patient denies visual changes, redness, or drainage. ENT: The patient denies earache, nasal drainage or sore throat. CARDIOVASCULAR: The patient denies chest pain or palpitations. PULMONARY: The patient does complain of shortness of breath and some mild respiratory distress. GASTROINTESTINAL: The patient denies nausea, vomiting, diarrhea or abdominal pain. Does note swelling of the abdomen. GENITOURINARY: The patient denies frequency, urgency of urination. Denies dysuria. MUSCULOSKELETAL: The patient denies swelling in his legs and some rash on his lower extremities. PSYCHIATRIC: The patient denies anxiety, irritability or depression. [address] [address] CONSULTATION Name: GUILLERMO ESCALONA Room #: 403-P [facility] [place] ..#: [id number] Admission: 03/31/19 Attend Phys: Atilio Rich MD Discharge: 04/04/19 Date of : 54 Report #: [id number] Other systems in a 14-point review of systems are negative. PHYSICAL EXAMINATION: VITAL SIGNS: At this time include temperature 97.5, pulse 83, respiratory rate 20, blood pressure 127/75. GENERAL: This is a somewhat chronically ill-appearing male patient who appears to be in minimal distress. HEENT: Head normocephalic. Nose and throat are clear. NECK: Supple. LUNGS: Diminished. HEART: Regular rhythm. ABDOMEN: Soft. Bowel sounds present, slightly distended. EXTREMITIES: Lower extremities demonstrate 2-3+ edema and venous stasis dermatitis, bilateral lower extremities. No open ulcerations noted at this time. NEUROLOGIC: The patient is alert and oriented and appropriate. LABORATORY DATA: Include white blood cell count 4.9 with hemoglobin 15.9. Sodium 140, potassium 3.9, chloride 104, CO2 of 30, BUN 23, creatinine 1.3, glucose is 118, calcium is 8.6, total protein 5.5, albumin is low at 2.4. CLINICAL IMPRESSION: 1. Bilateral lower extremity venous stasis dermatitis. 2. Congestive heart failure, acute on chronic. 3. Coronary artery disease. 4. Hyperlipidemia. RECOMMENDATIONS: At this point in time, agree with IV diuresis. He will be seen by Cardiology. We will recommend AmLactin cream to the lower extremities. We will hold off initially on compression. Hopefully, as he diureses a little bit, we will be able to add some compression to his lower extremities to control the edema. He will need ongoing nutritional support. I appreciate being asked to see him again in consultation. <ELECTRONICALLY SIGNED> By: Dany Shi MD 04/06/19 1239 1815 0036 Dany Shi MD /nt
== END 2019-04-04 12:30 | disposition home health service (06) | DRG 291 ==
LOC: ER 10:13 → EROBS 13:27 → 3W 13:27 → 4N 04-02 18:00
PROVIDERS: Emergency Medicine; Nurse Practitioner Adult Health; ADMIT Family Medicine
DX: I11.0 Hypertensive heart disease with heart failure (principal); E43 Unspecified severe protein-calorie malnutrition; I48.20 Chronic atrial fibrillation, unspecified; I48.92 Unspecified atrial flutter; I50.33 Acute on chronic diastolic (congestive) heart failure; I25.10 Atherosclerotic heart disease of native coronary artery without angina pectoris; E78.00 Pure hypercholesterolemia, unspecified; J44.9 Chronic obstructive pulmonary disease, unspecified; I87.8 Other specified disorders of veins; E78.5 Hyperlipidemia, unspecified; G47.33 Obstructive sleep apnea (adult) (pediatric); I73.9 Peripheral vascular disease, unspecified; E66.9 Obesity, unspecified; I89.0 Lymphedema, not elsewhere classified; K59.00 Constipation, unspecified; Z90.49 Acquired absence of other specified parts of digestive tract; Z95.5 Presence of coronary angioplasty implant and graft; Z87.442 Personal history of urinary calculi; I25.2 Old myocardial infarction; Z89.422 Acquired absence of other left toe(s); Z86.73 Personal history of transient ischemic attack (TIA), and cerebral infarction without residual deficits; Z82.49 Family history of ischemic heart disease and other diseases of the circulatory system; Z71.6 Tobacco abuse counseling; Z68.36 Body mass index [BMI] 36.0-36.9, adult; Z79.82 Long term (current) use of aspirin; Z79.899 Other long term (current) drug therapy
CPT/HCPCS: 10091; 10779; 10790; 10879

== ENCOUNTER → 2019-04-15 | Outpatient (CLI) | payer OTHER, MEDICARE ==
[~2019-04-15] MED LIST changes: +DILTIAZEM 24HR180 M1 PO; +TORSEMIDE20 MG PO
== END ==
LOC: SJCVC 14:46
DX: I48.91 Unspecified atrial fibrillation (principal); R94.31 Abnormal electrocardiogram [ECG] [EKG]; I11.0 Hypertensive heart disease with heart failure; I50.31 Acute diastolic (congestive) heart failure; F41.9 Anxiety disorder, unspecified; F32.9 Major depressive disorder, single episode, unspecified; J44.9 Chronic obstructive pulmonary disease, unspecified; G47.33 Obstructive sleep apnea (adult) (pediatric); I25.118 Atherosclerotic heart disease of native coronary artery with other forms of angina pectoris; I63.521 Cerebral infarction due to unspecified occlusion or stenosis of right anterior cerebral artery; I65.23 Occlusion and stenosis of bilateral carotid arteries; Z86.79 Personal history of other diseases of the circulatory system; Z95.818 Presence of other cardiac implants and grafts; Z79.899 Other long term (current) drug therapy